=== PATIENT | male | born 1965 | race Caucasian/White ===

== ENCOUNTER 2016-11-21 18:12 | Emergency (ER) | payer OTHER ==
[~2016-11-21] VITALS: Ht 162.6 cm; Wt 72.6 kg
[~2016-11-21 18:12] MED LIST: DEBROX15 M1 BOTH EARS; IBUPROFEN600 MG ORAL; IBUPROFEN800 M1 PO; NORCO 5-325 TA1 EACH ORAL; OMEPRAZOLE20 M2 ORAL; TYLENOL650 MG/20. ORAL
[2016-11-21 18:35] VITALS: BP 128/84
[2016-11-21] MEDS ORDERED: AMOXICILLIN500 MG ORAL (19:35)
[2016-11-21] MEDS ORDERED: IBUPROFEN600 MG ORAL (19:35)
[2016-11-21 19:55] VITALS: BP 119/74
--- NOTE | 2016-11-24 15:55 | Emergency Room Report ---
History of Present Illness General Chief Complaint: Headache Source: Patient Present Illness HPI The pt is a 51 yo M presenting with fever, cough, sore throat, and headache which began three days prior. The patient first noticed an itchy throat and then developed these other symptoms. Throat pain now described as an 8/10 sharp sensation, worse with swallowing. No radiation of pain. Headache described as a diffuse 5/10 dull ache. The patient denies any other symptoms including neck pain/stiffness, dizziness, blurred vision, rash, night sweats, cough, SOB, fatigue, abd pain Allergies: Coded Allergies: No Known Allergies (Unverified , 03/01/14) Patient History Past Medical History: see triage record Pertinent Family History: none Reviewed Nursing Documentation: PMH: Agreed, PSxH: Agreed Nursing Documentation-PMH Past Medical History: No Stated History Review of Systems All Other Systems: negative except mentioned in HPI Physical Exam Vital Signs Date Time Temp Pulse Resp B/P Pulse Ox O2 Delivery O2 Flow Rate FiO2 11/21/16 18:25 101.8 124 21 128/84 96 Room Air Sp02 EP Interpretation: reviewed, normal General Appearance: no apparent distress, alert, GCS 15, non-toxic Head: normocephalic, atraumatic Eyes: bilateral eye PERRL, bilateral eye normal inspection ENT: hearing grossly normal, no angioedema, TMs + canals normal, uvula midline , moist mucus membranes, tonsillar swelling, pharyngeal erythema, tonsillar exudate Neck: full range of motion, supple, supple/symm/no masses Respiratory: chest non-tender, lungs clear, normal breath sounds, speaking full sentences Cardiovascular #1: regular rate, rhythm, no edema Musculoskeletal: back normal, gait/station normal, normal range of motion, non- tender Neurologic: alert, oriented x3, responsive, motor strength/tone normal, sensory intact, speech normal Psychiatric: judgement/insight normal, memory normal, mood/affect normal, no suicidal/homicidal ideation Skin: normal color, no rash, warm/dry, well hydrated Lymphatic: adenopathy - cervical Medical Decision Making PA Attestation Dr. Hylton is my supervising physician. Patient management was discussed with my supervising physician Diagnostic Impression: Primary Impression: Pharyngitis, acute ER Course The pt is a 51 yo M presenting with fever, cough, sore throat, and headache which began three days prior DDx: pharyngitis, bronchitis, PNA, influenza, meningitis PE: Pt is febrile and tachycardic. NAD HEENT: there is bilat tonsillar edema, erythema, and exudate. Uvula midline. No nuchal rigidity. + cervical lymphad Lungs CTA bilat. Pt is given tylenol for fever. Pt will be DC"ed home with prescription for amoxicillin and motrin. ER precautions given Last Vital Signs Date Time Temp Pulse Resp B/P Pulse Ox O2 Delivery O2 Flow Rate FiO2 11/21/16 19:55 129 24 119/74 95 Room Air 11/21/16 18:35 101.9 Status: improved Disposition: HOME, SELF-CARE Condition: Improved Scripts Amoxicillin* (AMOXIL*) 500 Mg Capsule 500 MG ORAL Q12HR, #20 CAP Prov: SCOTTIE DA SILVA 11/21/16 Ibuprofen* (MOTRIN*) 600 Mg Tablet 600 MG ORAL Q8H Y for For Pain, #30 TAB 0 Refills Prov: SCOTTIE DA SILVA 11/21/16 Referrals: [facility]ERR[facility] (PCP) Departure Forms: Return to Work Return to Work Date: Nov 24, 2016 Patient Instructions: Pharyngitis Additional Instructions: I discussed my findings with the patient. All questions and concerns have been answered. Treatment and medication compliance have been addressed. I advised the patient that they need to follow up with PMD in 3-5 days. Return to ED if pain remains or worsens, cough worsens or remains, you notice blood in your sputum, you notice wheezing, you experience a fever, or if needed for any reason. Patient verbalized understanding of discharge instructions. SCOTTIE DA SILVA Nov 24, 2016 15:55
== END 2016-11-21 20:00 | disposition home or self-care (01) ==
LOC: EMR 19:25
DX: J02.9 Acute pharyngitis, unspecified (principal); R00.0 Tachycardia, unspecified; R59.0 Localized enlarged lymph nodes
CPT/HCPCS: 99283